=== PATIENT | male | born 1955 | race Caucasian/White ===

== ENCOUNTER 2016-10-30 15:43 | Inpatient (IN) | payer MEDICAID, OTHER, SELFPAY ==
[2016-10-30 15:43] VITALS: BMI 24.7
[2016-10-30 17:42] LABS: RBC URINE 1 /hpf (0-3); URINE BILIRUBIN NEGATIVE (NEGATIVE); URINE BLOOD NEGATIVE (NEGATIVE); URINE COLOR Yellow (YELLOW); URINE GLUCOSE (UA) 2+ mg/dL (Normal); URINE KETONE TRACE mg/dL (NEGATIVE); URINE LEUKOCYTE ESTERASE NEG Leu/uL (Negative); URINE PROTEIN NEGATIVE (NEGATIVE); URINE UROBILINOGEN NORMAL mg/dL (0.2-1.0); WBC URINE 1 /hpf (0-5)
[2016-10-30] MEDS ORDERED: Sodium Chloride 0.9% 1,000 ML IV ONE (17:43)
[2016-10-30] MEDS ORDERED: Iohexol 240 (50 ml) PO STA (17:44)
[2016-10-30] MEDS ORDERED: Sodium Chloride 0.9% 1,000 ML ONE (17:56)
[2016-10-30] MEDS ORDERED: Iohexol 240 (50 ml) ONE (18:08)
[2016-10-30 18:13] LABS: BASO # 0.1 K/uL (0.0-0.2); BASO % 0.9 % (0.0-2.0); EOS # 0.3 K/uL (0.0-0.7); EOS % 2.9 % (0.0-4.0); HEMATOCRIT 35.7 % (35.0-51.0); LYMPH # 1.4 K/uL (1.0-4.3); LYMPH % 15.9 % (20.0-40.0); MEAN CELL VOLUME 84.8 fL (80.0-94.0); MEAN CORPUSCULAR HEMOGLOBIN 29.3 pg (27.0-31.0); MEAN CORPUSCULAR HGB CONC 34.5 g/dL (33.0-37.0); MEAN PLATELET VOLUME 7.8 fL (7.2-11.7); MONO # 0.8 K/uL (0.0-0.8); NRBC % 0.1 % (0.0-2.0); RED CELL DISTRIBUTION WIDTH 13.7 % (11.5-14.5); WHITE BLOOD COUNT 8.9 K/uL (4.8-10.8)
[2016-10-30 18:24] LABS: ALB/GLOB RATIO 1.2 (1.0-2.1); BILIRUBIN,TOTAL 0.8 mg/dL (0.2-1.3); TOTAL PROTEIN 7.1 g/dL (6.3-8.3)
[2016-10-30 18:25] LABS: CALCIUM 8.6 mg/dl (8.6-10.4)
--- NOTE | 2016-10-30 18:26 | C.PDOC ---
Time Seen by Provider: 10/30/16 17:12 Chief Complaint (Nursing): Abdominal Pain History Per: Patient Onset/Duration Of Symptoms: Days (2), Waxing/Waning Current Symptoms Are (Timing): Still Present Severity: Moderate Location Of Pain/Discomfort: LLQ Quality Of Discomfort: "Pain" Associated Symptoms: Nausea, Vomiting, Diarrhea Alleviating Factors: None Additional History Per: Prior Records Past Medical History Reviewed: Historical Data, Nursing Documentation, Vital Signs Vital Signs: Last Vital Signs Temp 99.3 F 10/30/16 16:02 Pulse 102 H 10/30/16 16:02 Resp 20 10/30/16 16:02 BP 156/87 H 10/30/16 16:02 Pulse Ox 98 10/30/16 18:27 - Medical History PMH: HTN, Hypercholesterolemia Surgical History: Tonsillectomy Family History: States: Unknown Family Hx - Social History Hx Alcohol Use: Yes Hx Substance Use: No - Immunization History Hx Tetanus Toxoid Vaccination: No Hx Influenza Vaccination: No Hx Pneumococcal Vaccination: Yes Review Of Systems Except As Marked, All Systems Reviewed And Found Negative. Constitutional: Negative for: Fever Cardiovascular: Negative for: Chest Pain Respiratory: Negative for: Shortness of Breath Gastrointestinal: Positive for: Nausea, Vomiting, Abdominal Pain, Diarrhea. Negative for: Melena, Hematochezia, Hematemesis Genitourinary: Positive for: Dysuria (?). Negative for: Hematuria, Scrotal Pain Musculoskeletal: Negative for: Neck Pain Skin: Negative for: Rash Neurological: Negative for: Weakness, Numbness Physical Exam - Physical Exam Appears: Non-toxic, No Acute Distress Skin: Normal Color, Warm, Dry, No Rash Head: Atraumatic, Normacephalic Eye(s): bilateral: Normal Inspection, PERRL, EOMI Neck: Normal ROM, Supple Cardiovascular: Rhythm Regular Respiratory: Normal Breath Sounds, No Accessory Muscle Use Gastrointestinal/Abdominal: Soft, Tenderness (LLQ) Back: No CVA Tenderness Extremity: Normal ROM Neurological/Psych: Oriented x3, Normal Motor, Normal Sensation ED Course And Treatment - Laboratory Results Result Diagrams: 10/30/16 18:05 10/30/16 18:05 Lab Interpretation: Abnormal Interpretation Of Abnormal: Renal insufficiency O2 Sat by Pulse Oximetry: 98 Pulse Ox Interpretation: Normal Disposition - Disposition Disposition Time: 19:00 Condition: FAIR - Clinical Impression Clinical Impression: LLQ abdominal pain Physician Patient Turnover Patient Signed Over To: Star Soares Handoff Comments: to f/up CT Scan and reassess/dispo pt.
--- NOTE | 2016-10-30 20:34 | CT ---
EXAM: CT Abdomen and Pelvis With Intravenous Contrast EXAM DATE/TIME: 10/30/2016 6:27 PM CLINICAL HISTORY: 61 years old, male; Pain and signs and symptoms; Nausea and vomiting; Abdominal pain; Localized; Left lower quadrant (llq); Additional info: Llq, n/v/d. TECHNIQUE: Axial computed tomography images of the abdomen and pelvis with intravenous contrast. All CT scans at this facility use one or more dose reduction techniques, viz.: automated exposure control; ma/kV adjustment per patient size (including targeted exams where dose is matched to indication; i.e. head); or iterative reconstruction technique. Coronal and sagittal reformatted images were created and reviewed. CONTRAST: 100 mL of visipaque 320 administered intravenously. COMPARISON: No relevant prior studies available. FINDINGS: LIMITATIONS: Mild streak/motion artifact. LOWER THORAX: Heart appears mildly enlarged. ABDOMEN: LIVER: No acute abnormality of the liver identified. GALLBLADDER AND BILE DUCTS: No CT evidence of acute cholecystitis. No evidence of significant biliary ductal dilatation. PANCREAS: No CT evidence of acute pancreatitis. SPLEEN: No acute abnormality of the spleen identified. ADRENALS: No acute abnormality of the adrenal glands identified. KIDNEYS AND URETERS: 7 x 6 mm obstructing stone just distal to the left UVJ/ureterovesicular junction, image 156/series 3, in the bladder lumen posteriorly on the left, causing moderate to severe left hydroureteronephrosis. There is also left perinephric stranding. Tiny, nonobstructing right renal stone. STOMACH AND BOWEL: Scattered colonic diverticulosis, without evidence of diverticulitis. Otherwise, no significant abnormality of the bowel is identified. No evidence of bowel obstruction or colitis. APPENDIX: Appendix is seen, and is within normal limits in appearance. PELVIS: BLADDER: See above. No evidence of significant bladder wall thickening by CT. REPRODUCTIVE: Prostate gland is mildly enlarged. ABDOMEN and PELVIS: INTRAPERITONEAL SPACE: No evidence of free intraperitoneal air or fluid. RETROPERITONEAL SPACE: Small amount of fluid is seen in the left pelvic retroperitoneal space, partially abutting the left distal ureter. Most likely, this is related to the obstructing stone at the left UVJ. No evidence of acute retroperitoneal hemorrhage. BONES/JOINTS: Degenerative changes of the spine incidentally noted. No acute fractures or other acute bony abnormality visualized. SOFT TISSUES: Bilateral fat containing inguinal hernias. Small umbilical hernia, containing only fat. VASCULATURE: Scattered vascular calcifications. No evidence of abdominal aortic aneurysm. LYMPH NODES: No evidence of diffuse lymphadenopathy. IMPRESSION: - 7 mm obstructing stone just distal to the left UVJ. - See above for remaining findings.
[2016-10-30] MEDS ORDERED: Ciprofloxacin 400mg/200ml D5W 400 MG/200 ML BAG IVPB STA (20:56)
[2016-10-30] MEDS ORDERED: Ciprofloxacin 400mg/200ml D5W 400 MG/200 ML BAG IVPB ONE (21:09)
--- NOTE | 2016-10-30 23:32 | CP.PCM.HP ---
Past Patient History - Past Social History Smoking Status: Never Smoked - CARDIAC Hx Hypercholesterolemia: Yes Hx Hypertension: Yes - ENDOCRINE/METABOLIC Hx Diabetes Mellitus Type 2: Yes - PSYCHIATRIC Hx Substance Use: No - SURGICAL HISTORY Hx Tonsillectomy: Yes - ANESTHESIA Hx Anesthesia: No Hx Anesthesia Reactions: No Meds Allergies/Adverse Reactions: Allergies Allergy/AdvReac Type Severity Reaction Status Date / Time No Known Allergies Allergy Unverified 10/30/16 16:03 Results - Vital Signs Recent Vital Signs: Last Vital Signs Temp 99.4 F 10/30/16 21:18 Pulse 86 10/30/16 21:18 Resp 18 10/30/16 21:18 BP 155/88 H 10/30/16 21:18 Pulse Ox 97 10/30/16 21:18 - Labs Result Diagrams: 10/30/16 18:05 10/30/16 18:05 Assessment & Plan - Assessment and Plan (Free Text) Plan: npo [facility] urology tomorrow possibly cystoscopy pain med cipro as ordered
[2016-10-31] MEDS: Ciprofloxacin 200mg/100ml D5W 100 ML IVPB SCH ×2 (10:12→21:26)
[2016-10-31] MEDS ORDERED: Lactated Ringer's 1,000 ML IV ONE (11:00)
[2016-10-31] MEDS ORDERED: Midazolam 2 MG/2 ML VIAL ONE (11:13)
[2016-10-31] MEDS ORDERED: Propofol 10 mg/ml Inj (20 ML) ONE (11:13)
[2016-10-31] MEDS ORDERED: HYDROmorphone 0.5 mg/0.5 ml ISec IVP PRN (11:18)
[2016-10-31] MEDS ORDERED: Lidocaine 2% Jelly (Uro-Jet) ONE (12:03)
--- NOTE | 2016-10-31 14:08 | OP ---
PROCEDURE DATE: DESCRIPTION OF PROCEDURE: This is a 61-year-old admitted with left renal colic. CAT scan revealed distal left ureteral calculus approximately 7 mm. The patient was brought to the OR, prepped and draped. After general anesthesia given, placed in lithotomy position, #21 cystourethroscope was inserted into the bladder. The calculus was 1/3 out of the orifice. It could be visualized well. Using a foreign body forceps the stone was grasped and pulled it through the orifice and removed through the urethra and out. This calculus was sent for analysis. The patient tolerated the procedure and left the OR in good condition. Kevin Garcia MD
--- NOTE | 2016-10-31 14:59 | RAD ---
HISTORY: LT. URETER CALCULI COMPARISON: CT abdomen and pelvis 10/30/2016 FINDINGS: BOWEL: Right colonic contrast present from prior CT administration. No obstruction. No free air. BONES: Thoraco lumbar marginal osteophytes OTHER FINDINGS: 5 to 6 mm left paracentral pelvic calculus consistent with the left sided calculus having passed into the bladder IMPRESSION: 5 to 6 mm left paracentral pelvic calculus consistent with the left sided calculus having passed into the bladder
[2016-10-31 16:40] VITALS: RESP 20; O2SAT 97
[2016-10-31] MEDS: (Novolog) Insulin Aspart, Recombinant 100 u/ml 10 ml vial SC SCH ×2 (17:08→21:47)
--- NOTE | 2016-10-31 20:35 | CP.PCM.PN ---
Subjective - Date & Time of Evaluation Date of Evaluation: 10/31/16 Time of Evaluation: 09:00 - Subjective Subjective: clinically same Objective - Vital Signs/Intake and Output Vital Signs (last 24 hours): Temp Pulse Resp BP Pulse Ox 98.4 F 91 H 20 138/81 97 10/31/16 15:15 10/31/16 15:15 10/31/16 15:15 10/31/16 15:15 10/31/16 15:15 Intake and Output: 10/31/16 11/01/16 18:59 06:59 Intake Total 650 Output Total 200 Balance 450 - Medications Medications: Current Medications Famotidine (Pepcid) 20 mg PO DAILY [facility] Last Admin: 10/31/16 09:19 Dose: Not Given Ciprofloxacin (Cipro 200mg/100ml D5w) 100 mls @ 67 mls/hr IVPB Q12H [facility] Last Admin: 10/31/16 10:12 Dose: 67 mls/hr Insulin Aspart (Novolog) 0 unit SC ACHS RADHA PRN Reason: Protocol Last Admin: 10/31/16 17:08 Dose: 4 unit Ketorolac Tromethamine (Toradol) 30 mg IVP Q6 PRN PRN Reason: Pain, severe (8-10) Last Admin: 10/31/16 09:58 Dose: 30 mg Lisinopril (Zestril) 20 mg PO DAILY [facility] Metformin HCl (Glucophage Xr) 1,000 mg PO BID [facility] Last Admin: 10/31/16 17:07 Dose: 1,000 mg Rosuvastatin Calcium (Crestor) 20 mg PO [facility] - Constitutional Appears: Well - Head Exam Head Exam: ATRAUMATIC, NORMAL INSPECTION, NORMOCEPHALIC - Eye Exam Eye Exam: EOMI, Normal appearance, PERRL Pupil Exam: NORMAL ACCOMODATION, PERRL - ENT Exam ENT Exam: Mucous Membranes Moist, Normal Exam - Neck Exam Neck Exam: Full ROM, Normal Inspection. absent: Lymphadenopathy - GI/Abdominal Exam GI & Abdominal Exam: Soft, Diminished Bowel Sounds - Rectal Exam Rectal Exam: Deferred
[2016-11-01] MEDS: (Novolog) Insulin Aspart, Recombinant 100 u/ml 10 ml vial SC SCH ×2 (07:56→11:35)
[2016-11-01] MEDS: Ciprofloxacin 200mg/100ml D5W 100 ML IVPB SCH (10:01)
[2016-11-01 16:09] VITALS: BP 149/90; PULSE 81; TEMP 98.6
--- NOTE | 2016-11-01 17:52 | CP.PCM.PN ---
Subjective - Date & Time of Evaluation Date of Evaluation: 11/01/16 Time of Evaluation: 17:47 - Subjective Subjective: PT SEEN AND EXAMINED TODAY, PT DENIES ANY PAIN, SOB, RESP EASY AND UNLABORED. NAD Objective - Vital Signs/Intake and Output Vital Signs (last 24 hours): Temp Pulse Resp BP Pulse Ox 98.6 F 81 20 149/90 97 11/01/16 15:00 11/01/16 15:00 11/01/16 15:00 11/01/16 15:00 11/01/16 15:00 Intake and Output: 11/01/16 11/01/16 06:59 18:59 Intake Total 300 900 Output Total 900 1000 Balance -600 -100 - Medications Medications: Current Medications Famotidine (Pepcid) 20 mg PO DAILY [facility] Last Admin: 11/01/16 10:10 Dose: 20 mg Ciprofloxacin (Cipro 200mg/100ml D5w) 100 mls @ 67 mls/hr IVPB Q12H [facility] Last Admin: 11/01/16 10:01 Dose: 67 mls/hr Insulin Aspart (Novolog) 0 unit SC ACHS RADHA PRN Reason: Protocol Last Admin: 11/01/16 11:35 Dose: 3 unit Ketorolac Tromethamine (Toradol) 30 mg IVP Q6 PRN PRN Reason: Pain, severe (8-10) Last Admin: 10/31/16 09:58 Dose: 30 mg Lisinopril (Zestril) 20 mg PO DAILY [facility] Last Admin: 11/01/16 10:00 Dose: 20 mg Metformin HCl (Glucophage Xr) 1,000 mg PO BID [facility] Last Admin: 11/01/16 10:02 Dose: 1,000 mg Rosuvastatin Calcium (Crestor) 20 mg PO HS [facility] Last Admin: 10/31/16 21:27 Dose: 20 mg Assessment and Plan - Assessment and Plan (Free Text) Plan: 61 Y/O MALE ADMITTED FOR LEFT RENAL COLIC CT ABD/PELVIS- DISTAL LEFT URETERAL CALCULUS APPOX 7 MM CYSTO DONE, CALCULI REMOVED BY DR CUMMINGS CIPRO 500 MG PO BID FOR 7 DAYS F/U WITH PMD AND DR CUMMINGS IN 1-3 DAYS RETURN TO ER IF ANY WORSENING S/S PT AND FAMILY AGREE, VERBALIZE UNDERSTANDING
--- NOTE | 2016-11-03 20:28 | CARD ---
APPROVED REPORT EKG Measurement Heart [id number] NM [id number] <Conclusion> Normal sinus rhythm Minimal voltage criteria for LVH, may be normal variant Borderline ECG
== END 2016-11-01 17:00 | disposition home or self-care (01) | DRG 311 ==
LOC: C.ER 15:43 → C.9E 21:09 → C.3T 21:30
PROVIDERS: ADMIT Internal Medicine Nephrology; ATTEND Internal Medicine Nephrology
PROC: 0TC78ZZ Extirpation of Matter from Left Ureter, Via Natural or Artificial Opening Endoscopic (ICD-10-PCS; principal; 2016-10-31 11:30)
DX: N13.2 Hydronephrosis with renal and ureteral calculous obstruction (principal); I10 Essential (primary) hypertension; E78.00 Pure hypercholesterolemia, unspecified; E11.9 Type 2 diabetes mellitus without complications; Z79.4 Long term (current) use of insulin